=== PATIENT | female | born 1965 | race Caucasian/White ===

== ENCOUNTER 2024-08-09 10:14 | Day surgery (SDC) | payer OTHER ==
[2024-08-09] VITALS (14 sets, daily range): BP systolic 100–130; BP diastolic 60–86
[~2024-08-09] VITALS: Ht 162.6 cm; Wt 70.4 kg
[~2024-08-09 10:14] MED LIST: Bupivacaine 0.5% W/EPI 1:200000 SDV 30 ML Vial INJ ONE; ESTRADIOL (ONC1 EA11 TOP; HAIR, SKIN AND1 EAC3 PO; Lactated Ringer's 1,000 ML IV SCH; MULTI-VITAMIN1 EAC2 PO; Magnesium500 MG PO; SENNA LAXATIVE8.6 MG PO; VITAMIN D5000 UNIT PO
--- NOTE | 2024-08-09 10:36 | NUR ---
AMBULATORY INTO [facility]. HISTORY AND ALLERGIES REVIEWED. LUNGS CLEAR.NPO STATUS CONFIRMED. PT SPOUSE IS RIDE HOME TODAY.
[2024-08-09] MEDS ORDERED: Midazolam HCl 1MG / ML 2ML Vial IV ONE (10:40)
[2024-08-09] MEDS ORDERED: propofoL 20 ML IV ONE (11:00)
[2024-08-09] MEDS ORDERED: FentaNYL Citrate 50 MCG/ML 2 ML Injection IV ONE (11:00)
[2024-08-09] MEDS ORDERED: Ondansetron HCl 2 MG / ML 2ML Vial IV ONE (11:04)
[2024-08-09] MEDS ORDERED: Dexamethasone Sod Phos 10 MG/ML 1ML VIAL IV ONE (11:04)
[2024-08-09] MEDS ORDERED: Rocuronium Bromide 10 MG/ML 5ML Injection IV ONE (11:05)
[2024-08-09] MEDS ORDERED: Phenylephrine HCl 100 MCG/ML-NS 10MLSYR (1MG/10ML) IV ONE (11:08)
[2024-08-09] MEDS ORDERED: Glycopyrrolate 0.2 MG/ML 5ML VIAL IM ONE (11:14)
[2024-08-09] MEDS ORDERED: Phenylephrine HCl 10mg/ml 1 ml Vial IV ONE (11:16)
[2024-08-09] MEDS ORDERED: Bupivacaine 0.5% W/EPI 1:200000 SDV 30 ML Vial ONE (11:36)
[2024-08-09] MEDS ORDERED: Sugammadex Sodium 200 MG/2ML SDV (100 MG/ML) IV ONE (12:28)
[2024-08-09] MEDS ORDERED: Ketorolac Tromethamine 30mg Vial IV ONE (12:28)
[2024-08-09] MEDS ORDERED: Metoclopramide HCl 5MG / ML 2ML Vial ONE (13:20)
[2024-08-09] MEDS ORDERED: FentaNYL Citrate 50 MCG/ML 2 ML Injection ONE (13:20)
[2024-08-09] MEDS ORDERED: OxyCODONE 5 mg/Acetamin 325 mg TABLET PO PRN (13:40)
[2024-08-09] MEDS ORDERED: Ondansetron HCl 2 MG / ML 2ML Vial IV PRN (13:40)
--- NOTE | 2024-08-09 14:52 | NUR ---
Patient up to Ambulate independently. Gait steady. Discharge instructions reviewed with patient. Patient verbalizes understanding. Copy given to patient to take home, [facility]. Patient States Post-Procedure ride home has been arranged. Discharged via wheelchair to private car for ride home. PT TOLERATING PO. [place] PAD C/D. PT VOIDED. PT REPORTS PAIN TOLERABLE, READY TO GO HOME. PT REPORTS HAVING PAIN MEDS AT HOME ALREADY.
== END 2024-08-09 14:52 | disposition home or self-care (01) ==
LOC: ORSCMMR 10:14 → ORD 10:45 → ORSCMMR 14:52
PROVIDERS: Obstetrics & Gynecology
PROC: 0UT24ZZ Resection of Bilateral Ovaries, Percutaneous Endoscopic Approach (ICD-10-PCS; principal; 2024-08-09 10:45)
PROC: 0UT74ZZ Resection of Bilateral Fallopian Tubes, Percutaneous Endoscopic Approach (ICD-10-PCS; principal; 2024-08-09 10:45)
DX: N83.202 Unspecified ovarian cyst, left side (principal)
CPT/HCPCS: 36415; 86850; 86900; 86901; 88108; 88305; 88331; 88342; 93005; 93010; A9270; J1100; J1885; J2250; J2371; J2405; J2704; J2765; J3010; J7120

== ENCOUNTER → 2025-04-06 | Outpatient (CLI) | payer OTHER ==
[~2025-04-06] MED LIST changes: -Bupivacaine 0.5% W/EPI 1:200000 SDV 30 ML Vial INJ ONE; -Lactated Ringer's 1,000 ML IV SCH
[2025-04-06 15:05] LABS: Bacterial Vaginosis PCR Negative (NEGATIVE); Candida Group, PCR NOT DETECTED (NOT DETECT); Candida glabrata-krusei, PCR NOT DETECTED (NOT DETECT)
== END | disposition home or self-care (01) ==
LOC: LAB SHORT 10:36 → LAB 10:36
PROVIDERS: Advanced Practice Midwife
DX: N76.0 Acute vaginitis (principal)
CPT/HCPCS: 81515